=== PATIENT | female | born 1995 | race African-American/Black ===

== ENCOUNTER → 2018-07-31 | Day surgery (SDC) | payer OTHER ==
[2018-07-17 16:59] VITALS: BMI 28.6
[~2018-07-31] MED LIST: DESFLURANE GAS 240 ML BOTTLE IH ONE; DEXAMETHASONE SOD PHOSPHATE 4 MG/1 ML VIAL ONE; HYDROmorphone HCL/PF 1 MG/ML AMP ONE; MIDAZOLAM HCL 2 MG/2 ML SINGLE DOSE VIAL ONE; ONDANSETRON 4 MG/2 ML VIAL ONE; PROPOFOL 20 ML ONE; ROCURONIUM BROMIDE 50 MG/5 ML VIAL ONE; ceFAZolin SODIUM 1 GM VIAL ONE
[2018-07-31 07:03] VITALS: BP 125/72; PULSE 92; TEMP 98.1
== END | disposition home or self-care (01) ==
LOC: FASU 06:17
PROVIDERS: ATTEND Plastic Surgery
PROC: 0H0V0ZZ Alteration of Bilateral Breast, Open Approach (ICD-10-PCS; principal; 2018-07-31)
DX: N62 Hypertrophy of breast (principal); Z53.09 Procedure and treatment not carried out because of other contraindication
CPT/HCPCS: 84703

== ENCOUNTER 2018-08-07 10:08 | Day surgery (SDC) | payer OTHER ==
[2018-08-02 13:31] VITALS: BMI 28.6
[2018-08-07] MEDS ORDERED: PROMETHAZINE HCL 25 MG/1 ML VIAL IVPUSH PRN (11:01)
--- NOTE | 2018-08-07 16:09 | SURG ---
Surgery Bar Finish Operator Note Bar Finish Operator: Ric José PA-C Date of Service: 08/07/18 Diagnosis: Hypertrophy of breasts Procedure: Bilateral breast reduction I was present for the entirety of the operative procedure. For further detail, please refer to operative report.
[2018-08-07] MEDS ORDERED: ONDANSETRON 4 MG/2 ML VIAL IVPB PRN (16:22)
--- NOTE | 2018-08-07 16:24 | OP ---
Operative Note - Note: Operative Date: 08/07/18 Pre-Operative Diagnosis: bilateral macromastia Operation: bilateral breast reduction Post-Operative Diagnosis: Same as Pre-op Surgeon: Ihsan Glez Anesthesia: General
[2018-08-07] MEDS ORDERED: LACTATED RINGERS SOLUTION 1,000 ML IV SCH (16:45)
--- NOTE | 2018-08-07 18:47 | PN ---
Progress Note (short form) - Note Progress Note: All tissue viable, no hematoma, Drains slowing and thinning. Pain well controlled. Ambulation encouraged. VSS AF. Obs overnight
[2018-08-07] MEDS: oxyCODONE HCL 5 MG TABLET PO PRN ×2 (20:03→23:59)
[2018-08-08 06:37] VITALS: BP 105/58; PULSE 72; TEMP 98.3
[2018-08-08] MEDS: oxyCODONE HCL 5 MG TABLET PO PRN ×2 (06:44→11:01)
--- NOTE | 2018-08-08 08:21 | PN ---
Progress Note (short form) - Note Progress Note: POD 1 post BRM All tissus viable, no collections, HALLIE"s thin serosanguinous VSS AF OK for discharge.
--- NOTE | 2018-08-08 08:59 | OP ---
DATE OF OPERATION: 08/07/2018 ATTENDING SURGEON: Ihsan Lopez MD TITLE OF PROCEDURE: Bilateral reduction mammoplasty. PREOPERATIVE DIAGNOSIS: Bilateral symptomatic macromastia. POSTOPERATIVE DIAGNOSIS: Bilateral symptomatic macromastia. DESCRIPTION OF PROCEDURE: The patient was seen in the holding area. She was marked. Nipples were sighted at 21 cm from the sternal notch bilaterally. A modified Fred type pattern, inverted T pattern reduction was planned. She was awake for all markings, understands where the proposed incisions are to be. The patient was then given sequential compression stockings and JAMEL hose, brought to the operating room and placed in supine position. A gram of Ancef was given preoperatively. She was prepped and draped in standard surgical fashion. Position was carefully checked by surgical and anesthesia teams. A Sutton catheter had been applied, which was removed at the end of the procedure. A time-out was called. Patient, procedure, side and sites were verified. The nipples were traced with 42-mm cookie-cutter bilaterally. With the breasts under tourniquet, a 10-cm width inferior pedicle was deepithelialized with the exception of the nipple areola. Tourniquets were removed. Attention was then directed towards the left breast, where the incisions were made for superior, medial, and lateral skin flaps. These were elevated with 1.5 cm of thickness to the flaps uniformly to the level of the chest wall. The pedicles were then developed by removing skin and tissue between the deepithelialized pedicle and the skin flaps. The total resected weight was 502 g. Hemostasis was meticulously achieved. The wounds were copiously irrigated with normal saline, and the skin was tailor-tacked. Attention was directed to the contralateral side. On the right side, a mirror image procedure was performed. The resection weight was exactly the same, 502 g. Nipples were pink and viable with good dermal bleeding. The skin was modified with the patient in a seated position for symmetry. Symmetry of size, shape, position was achieved. The closure was performed with a half-buried mattress 2-0 nylon suture at the inverted T-point. A series of interrupted buried deep dermal 3-0 Monocryl sutures were used universally, and a running subcuticular 3-0 Monocryl suture was used on the vertical and horizontal limbs. Running subcuticular 4-0 Monocryl suture was used around the nipple areola. The drains were brought out through lateral extents of the incisions, secured with a 2-0 nylon drain suture. They were size 10 flat Casey drains. Surgical bra was applied with ABD gauze. She was awoken from anesthesia, transferred to recovery without complication. IHSAN LOPEZ M.D. [id number]
--- NOTE | 2018-08-14 15:37 | PATH ---
Surgical Pathology Report Patient Name: SILVERIO SANTOS Med. Rec. #: [id number] /Age/Gender: 1995 (Age: 22) / F Account: [id number] Location: [facility] Taken: 08/07/2018 Received: 08/07/2018 Reported: 08/14/2018 Physicians: Ihsan Glez Specimen(s) Received A: LEFT BREAST TISSUE AND SKIN B: RIGHT BREAST TISSUE AND SKIN Clinical History Hypertrophy of breasts Final Diagnosis A. BREAST TISSUE AND SKIN, LEFT, BREAST REDUCTION: BENIGN BREAST TISSUE WITH FIBROCYSTIC TO FIBROADENOMATOID CHANGES INCLUDING STROMAL FIBROSIS, MICROCYSTS, MILD PERIDUCTAL CHRONIC INFLAMMATION, AND DUCT ECTASIA. SKIN WITHOUT SIGNIFICANT PATHOLOGIC FINDINGS. B. BREAST TISSUE AND SKIN, RIGHT, BREAST REDUCTION: BENIGN BREAST TISSUE WITH FIBROCYSTIC TO FIBROADENOMATOID CHANGES INCLUDING STROMAL FIBROSIS, MICROCYSTS, DUCT ECTASIA, AND RARE MICROCALCIFICATIONS. SKIN WITHOUT SIGNIFICANT PATHOLOGIC FINDINGS. Electronically Signed Staci Orellana M.D. Gross Description A. Received in formalin labeled "left breast tissue and skin," is a 483 g, 20.0 x 12.5 x 3.5 cm aggregate of multiple unoriented portions of skin and fibroadipose tissue. The epidermal surfaces are brown and unremarkable. Sectioning reveals abundant dense, white, focally firm fibrous tissue. No discrete masses are identified. Toile[employer] Supervisor sections are submitted in 6 cassettes. B. Received in formalin labeled "right breast tissue and skin," is a 486 g, 17.0 x 14.0 x 5.0 cm aggregate of multiple unoriented portions of skin and fibroadipose tissue. The epidermal surfaces are brown and unremarkable. Sectioning reveals abundant dense, white, focally firm fibrous tissue. No discrete masses are identified. Toilet And Laundry Soap Supervisor sections are submitted in 5 cassettes. DL/08/09/2018 saudi08/09/2018
== END 2018-08-08 11:27 | disposition home or self-care (01) ==
LOC: FASU 10:08 → FM/S 17:01 → FASU 08-08 11:27
PROVIDERS: ATTEND Plastic Surgery
PROC: 0HBV0ZZ Excision of Bilateral Breast, Open Approach (ICD-10-PCS; principal; 2018-08-07 10:30)
DX: N62 Hypertrophy of breast (principal)
CPT/HCPCS: 84703; 88305-TC; 94760